=== PATIENT | female | born 1975 | race Hispanic/Latino ===

== ENCOUNTER 2016-06-20 20:57 | Emergency (ER) | payer OTHER, BC ==
[~2016-06-20] VITALS: Ht 167.6 cm; Wt 99.1 kg
[2016-06-20] MEDS ORDERED: SKELAXIN800 MG PO (23:54)
[2016-06-20] MEDS ORDERED: NAPROSYN500 MG PO (23:54)
[2016-06-20] MEDS ORDERED: TRAMADOL HCL50 MG PO (23:54)
[2016-06-21 00:01] VITALS: BP 156/92
== END 2016-06-21 00:02 | disposition home or self-care (01) ==
LOC: EME 20:57
DX: S16.1XXA Strain of muscle, fascia and tendon at neck level, initial encounter (principal); M25.512 Pain in left shoulder; R51 Headache; V44.5XXA Car driver injured in collision with heavy transport vehicle or bus in traffic accident, initial encounter; I10 Essential (primary) hypertension
CPT/HCPCS: 72052; 99281; 99284; Q0177